=== PATIENT | female | born 1985 ===

== ENCOUNTER 2018-04-16 10:40 | Outpatient (CLI) | payer BC | END 2018-04-16 10:41 | disposition home or self-care (01) | LOC: BICULT 10:40 | PROVIDERS: ATTEND Nurse Practitioner Women's Health | DX: D25.9 Leiomyoma of uterus, unspecified (principal) | CPT/HCPCS: 76856 ==

== ENCOUNTER 2022-03-14 08:03 | Outpatient (CLI) | payer BC | END 2022-03-14 08:04 | disposition home or self-care (01) | LOC: BICULT 08:03 | PROVIDERS: ATTEND Physician Assistant | DX: R79.89 Other specified abnormal findings of blood chemistry (principal) | CPT/HCPCS: 76700 ==